=== PATIENT | female | born 2000 | race Caucasian/White ===

== ENCOUNTER → 2024-07-14 | Outpatient (CLI) | payer OTHER, SELFPAY ==
--- NOTE | 2024-07-14 | BRBX_PTH ---
PATIENT: SAÚL FAJARDO LOC: [facility] U#:[id number] AGE/SX: 24/F ROOM: RE07/14/[address]: Dr. Surekha Philip MD : 2000 BED: DIS: 07/14/2024 SPEC #: [id number] RECD: 07/14/24 13:09 STATUS: DISHA BRANDON #: [id number] BRODY: 07/14/24 00:[address]: Surekha Philip DEPT: SURGICAL PATHOLOGY RECD BY: Brian Copeland ENTERED: 07/14/24 13:10 SP TYPE: BREAST BX OTHR DR: Oanh Yusuf, TAMMY-C Tissues: Right breast, NOS Procedures: Surgery Specimen Level IV HEADER OPERATION: Right breast biopsy PRE-OP DIAGNOSIS: Right breast mass TISSUE SUBMITTED: Right breast 6o'clock, 4cm from nipple Ischemic Time: 1 minute Fixation Time: 11 hours MICROSCOPIC DIAGNOSIS Right breast, 6o'clock, 4cm from nipple, core biopsy: Fibroadenoma. Negative for atypia or malignancy. See comment. 07/15/2024 COMMENT Correlation with clinical, radiologic findings and appropriate follow up are necessary. MICROSCOPIC DESCRIPTION Slides are reviewed. GROSS DESCRIPTION Received in fixative is one container labeled with the patient's name and designated Right breast. The specimen consists of multiple elongated fragments of peña-yellow fibroadipose tissue measuring in aggregate 1 x 0.5 x 0.1cm. The entire specimen is submitted in one cassette. 07/14/2024 TC:1 CPT:08517
== END | disposition home or self-care (01) ==
LOC: LABSPEC 09:43
PROVIDERS: PCP Nurse Practitioner Family; Referring Provider Surgery; Visit Provider Surgery
DX: D24.1 Benign neoplasm of right breast (principal)
CPT/HCPCS: 88305